=== PATIENT | male | born 1965 | race Caucasian/White ===

== ENCOUNTER 2018-10-11 08:05 | Day surgery (SDC) | payer OTHER, MEDICAID ==
[2018-10-11] MEDS ORDERED: LR 1,000 ML IV ONE (08:15)
[2018-10-11 09:17] LABS: PLATELET COUNT 151 10^3/uL (150-400)
--- NOTE | 2018-10-11 09:20 | PDHPUP ---
History & Physical Update H&P update statement: This history and physical update is based on an assessment of the patient which was completed after admission or registration (within 24 hours), but prior to the surgery/procedure. H&P update: H&P reviewed & patient examined, no change in patient's condition since H&P completed
[2018-10-11] MEDS ORDERED: OXYMETAZOLINE 30 ML NASAL SPRAY EACHNARE ONE (09:21)
--- NOTE | 2018-10-11 09:29 | PDANEPAE ---
ANE History of Present Illness septoplasty ANE Past Medical History - Cardiovascular History Hx Hypertension: Yes Hx Arrhythmias: No Hx Chest Pain: No Hx Coronary Artery / Peripheral Vascular Disease: Yes Hx CHF / Valvular Disease: Yes Hx Palpitations: No Cardiovascular History Comment: Hx CABG, VALVE ISSUES - Pulmonary History Hx COPD: Yes Hx Asthma/Reactive Airway Disease: Yes Hx Recent Upper Respiratory Infection: No Hx Oxygen in Use at Home: Yes O2 in Use at Home (L/minute): 5-7L 24/7 Hx Sleep Apnea: No Sleep Apnea Screening Result - Last Documented: Positive Pulmonary History Comment: SEVERE COPD - Neurologic History Hx Cerebrovascular Accident: No Hx Seizures: No Hx Dementia: No - Endocrine History Hx Diabetes: No Hypothyroid: No Hyperthyroid: No Obesity: mild - Renal History Hx Renal Disorders: No Renal History Comment: self caths - Liver History Hx Hepatic Disorders: No - Neurological & Psychiatric Hx Hx Neurological and Psychiatric Disorders: Yes Neurological / Psychiatric History Comment: HX OF PARALYSIS WITH SPINAL CORD INJURY 2004 - Cancer History Hx Cancer: No - Congenital Disorder History Hx Congenital Disorders: No - GI History Hx Gastrointestinal Disorders: Yes Gastrointestinal History Comment: acid reflux - Other Health History Other Health History: dentures upper partial lower. 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 Pacemaker Model: FORTIFY [id number] Pacemaker Mode: VVI Date Pacemaker Last Checked: 10/01/18 ANE Patient History - Allergies Allergies/Adverse Reactions: No Known Allergies Allergy (Verified 10/04/18 16:00) - Home Medications Home medications: home medication list seen and reviewed Home Medications: Aspirin 81mg (*) 10/04/18 [Last Taken 10/10/18] Atorvastatin Calcium 10/04/18 [Last Taken 10/10/18] Belsomra 10/04/18 [Last Taken 2 Days Ago ~10/09/18] Budesonide 10/04/18 [Last Taken 10/11/18 06:00] Carvedilol 10/04/18 [Last Taken 10/10/18] Cephalexin 10/04/18 [Last Taken 10/10/18] Clopidogrel Bisulfate 10/04/18 [Last Taken 10/07/18] Digoxin 10/04/18 [Last Taken 10/10/18] Duoneb (*) 10/04/18 [Last Taken 10/11/18 06:00] Gabapentin 10/04/18 [Last Taken 10/10/18] Miralax 17 gm (*) 10/04/18 [Last Taken 10/10/18] Mirtazapine 10/04/18 [Last Taken 10/10/18] Myrbetriq 10/04/18 [Last Taken 10/10/18] Ramipril 10/04/18 [Last Taken 10/10/18] Ranitidine HCl 10/04/18 [Last Taken 10/10/18] Spironolactone 10/04/18 [Last Taken 10/10/18] Symbicort 80-4.5 Mcg Inhaler 10/04/18 [Last Taken 10/10/18] Xanax 10/04/18 [Last Taken 10/10/18] - NPO status NPO Status: no food or drink >8 hours NPO Since - Liquids (Date): 10/10/18 NPO Since - Liquids (Time): 20:00 NPO Since - Solids (Date): 10/10/18 NPO Since - Solids (Time): 18:00 - Smoking Hx Smoking Status: Former smoker - Family Anes Hx Family Hx Anesthesia Complications: none ANE Labs/Vital Signs - Labs Result Diagrams: 10/11/18 08:55 10/11/18 08:55 - Vital Signs Blood Pressure: 122/86 Heart Rate: 65 Respiratory Rate: 16 O2 Sat (%): 100 Height: 182.88 cm Weight: 106.594 kg ANE Physical Exam - Airway Mallampati Score: Class 2 Mouth exam: normal dental/mouth exam - Pulmonary Pulmonary: reduced air movement, expiratory wheeze - Cardiovascular Cardiovascular: regular rate and rhythym - ASA Status ASA Status: IV ANE Anesthesia Plan Anesthesia Plan: general endotracheal anesthesia
[2018-10-11] MEDS ORDERED: ONDANSETRON 4 MG/2 ML VIAL ONE (09:42)
[2018-10-11] MEDS ORDERED: ROCURONIUM 50 MG/5 ML VIAL ONE (09:42)
[2018-10-11] MEDS ORDERED: SUCCINYLCHOLINE CHLORIDE 200 MG/10 ML SYR IVP ONE (09:42)
[2018-10-11] MEDS ORDERED: LIDOCAINE 2% 5 ML SDV ONE (09:42)
[2018-10-11] MEDS ORDERED: DEXAMETHASONE 4 MG/ML VIAL ONE ×2 (09:42→12:55)
[2018-10-11] MEDS ORDERED: LIDO/EPI 1% **Not for Epidural 20 ML MDV ONE (09:43)
[2018-10-11] MEDS ORDERED: OXYMETAZOLINE 30 ML NASAL SPRAY ONE (09:43)
[2018-10-11] MEDS ORDERED: BACITRACIN ZINC 0.5 OZ OINTTUBE TP ONE (09:43)
[2018-10-11] MEDS ORDERED: PROPOFOL 200 MG/20 ML VIAL ONE (09:44)
[2018-10-11] MEDS ORDERED: fentaNYL 100 MCG/2 ML INJ ONE ×3 (09:44→12:27)
[2018-10-11] MEDS ORDERED: ALBUTEROL HFA ANES ONLY 200 PUFFS/8.5 GM MDI IH ONE (10:18)
[2018-10-11] MEDS ORDERED: SUGAMMADEX SODIUM 200 MG/2 ML VIAL IVP ONE (10:18)
--- NOTE | 2018-10-11 11:36 | POSTOPPROG ---
Post Op Note Date of Operation: 10/11/18 Surgeon: Maurice Lara Auditor In Charge: none Anesthesiologist: Reid Anesthesia: GET(General Endotracheal) Pre-op Diagnosis: Septal deviation, Septal perforation, Inferior turbinate hypertrophy Post-op Diagnosis: Septal deviation, Septal perforation, Inferior turbinate hypertrophy Indication: Septal deviation, Septal perforation, Inferior turbinate hypertrophy Procedure: Endoscopic septoplasty, Inferior turbinate SMR Findings: Septal deviation, Septal perforation, Inferior turbinate hypertrophy Inf/Abcess present in the surg proc area at time of surgery?: No Depth: Deep Incisional (Fascial) EBL: Minimal Complications: none Specimen(s): none
[2018-10-11] MEDS ORDERED: OXYMETAZOLINE 30 ML NASAL SPRAY EACHNARE PRN (11:37)
[2018-10-11] MEDS ORDERED: OXYCODONE/APAP 5/325 TAB PO PRN (11:37)
[2018-10-11] MEDS ORDERED: HYDROCODONE/APAP 5/325 TAB PO PRN (11:44)
[2018-10-11] MEDS ORDERED: ONDANSETRON 4 MG/2 ML VIAL IVP PRN (11:44)
[2018-10-11] MEDS ORDERED: ALBUTEROL 3 ML DEYVIAL IH PRN (11:44)
[2018-10-11] MEDS ORDERED: LR 500 ML IV PRN (11:44)
[2018-10-11] MEDS ORDERED: NALOXONE HCL 0.4 MG/ML INJ IVP PRN (11:44)
--- NOTE | 2018-10-11 11:44 | POSTANESTH ---
Post Anesthetic Evaluation Cardiovascular Status: Normal, Stable Respiratory Status: Normal, Stable Level of Consciousness/Mental Status: Can Participate in Eval Pain Control: Adequate, Prn Tx Ordered Nausea/Vomiting Control: Adequate, Prn Tx Ordered Complications Possibly Related to Anesthesia: None Noted
[2018-10-11] MEDS: fentaNYL 100 MCG/2 ML INJ IVP PRN ×4 (12:06→12:44)
[2018-10-11] MEDS ORDERED: HYDROCODONE/APAP 5/325 TAB ONE (12:27)
[2018-10-11] MEDS ORDERED: OXYCODONE/APAP 5/325 TAB ONE (12:46)
[2018-10-11] MEDS ORDERED: DEXAMETHASONE 4 MG/ML VIAL IVP ONE (13:00)
[2018-10-11 14:18] VITALS: BP 146/91
== END 2018-10-11 14:19 | disposition home or self-care (01) ==
LOC: FSGY 08:05
PROVIDERS: ATTEND Otolaryngology
DX: J34.2 Deviated nasal septum (principal); J34.89 Other specified disorders of nose and nasal sinuses; J34.3 Hypertrophy of nasal turbinates; I25.10 Atherosclerotic heart disease of native coronary artery without angina pectoris; I11.0 Hypertensive heart disease with heart failure; I50.22 Chronic systolic (congestive) heart failure; J44.9 Chronic obstructive pulmonary disease, unspecified; Z95.1 Presence of aortocoronary bypass graft; Z95.0 Presence of cardiac pacemaker
CPT/HCPCS: J0330; J1100; J2405; J2704; J3010

== ENCOUNTER → 2018-12-19 | Outpatient (CLI) | payer OTHER, MEDICAID | LOC: BHERIE 14:45 | PROVIDERS: ATTEND Internal Medicine Cardiovascular Disease | DX: I50.9 Heart failure, unspecified (principal) | CPT/HCPCS: 93306-PO ==